=== PATIENT | female | born 1965 | race Caucasian/White ===

== ENCOUNTER → 2016-07-12 | Outpatient (CLI) | payer OTHER ==
[~2016-07-12] MED LIST: FEXO1TAB49 PO; LEVO75TA5 PO; LSN/2025 PO; METO1TAB69 PO; OMEG10007 PO; POTA10TA PO; SIMV20TA2 PO
[2016-07-12 19:17] LABS: BLOOD UREA NITROGEN 17 mg/dl (7-18); BUN/CREATININE RATIO 19.4 (10-20); CALCIUM 10.1 mg/dl (8.5-10.1); CARBON DIOXIDE 29 mmol/L (21-32); CHLORIDE 101 mmol/L (98-107); CREATININE 0.87 mg/dl (0.60-1.20); GLUCOSE 96 mg/dl (70-99); SODIUM 137 mmol/L (136-145)
== END | disposition home or self-care (01) ==
LOC: C.LABPVFM 13:40
PROVIDERS: ATTEND Nurse Practitioner
DX: I10 Essential (primary) hypertension (principal); E78.2 Mixed hyperlipidemia

== ENCOUNTER → 2016-11-07 | Outpatient (CLI) | payer OTHER ==
[~2016-11-07] MED LIST changes: +METO100T44 PO; -METO1TAB69 PO
--- NOTE | 2016-11-08 08:14 | MAMMOGRAPHY REPORT ---
BILATERAL DIGITAL SCREENING MAMMOGRAM TOMOSYNTHESIS WITH CAD: 11/07/2016 CLINICAL HISTORY: Routine screening. Patient has no complaints. TECHNIQUE: Breast tomosynthesis in addition to standard 2D mammography was performed. Current study was also evaluated with a Computer Aided Detection (CAD) system. COMPARISON: Comparison is made to exams dated: 11/14/2015 mammogram, 11/12/2014 mammogram, 12/01/2013 u ltrasound, 12/01/2013 mammogram, 11/11/2013 mammogram, and 11/10/2012 mammogram - [facility]. BREAST COMPOSITION: There are scattered areas of fibroglandular density in both breasts. FINDINGS: There is a 6 mm focal asymmetry in the lower outer posterior left breast, for which addit ional spot compression tomosynthesis views and targeted ultrasound are recommended. No other suspicious mass, architectural distortion or cluster of microcalcifications is seen bilater ally. IMPRESSION: ACR BI-RADS CATEGORY 0: INCOMPLETE EVALUATION: NEED ADDITIONAL IMAGING EVALUATION The 6 mm focal asymmetry in the lower outer left breast needs additional evaluation. The patient will be called to schedule an appointment. Approximately 10% of breast cancers are not detected with mammography. A negative mammographic repor t should not delay biopsy if a clinically suggestive mass is present. Ammy Rock M.D. ay/:11/07/2016 17:07:03 Digital Advertising Analyst: Shonda CORNELIUS(Christopher)(M), [facility] letter sent: Addl Imaging 0 BI-RADS Code: ACR BI-RADS Category 0: Incomplete Evaluation: Need Additional Imaging Evaluation
== END | disposition home or self-care (01) ==
LOC: C.MAMM 12:50
PROVIDERS: ATTEND Nurse Practitioner
DX: Z12.31 Encounter for screening mammogram for malignant neoplasm of breast (principal); N64.89 Other specified disorders of breast

== ENCOUNTER → 2016-11-15 | Outpatient (CLI) | payer OTHER ==
--- NOTE | 2016-11-15 13:06 | MAMMOGRAPHY REPORT ---
UNILATERAL LEFT DIGITAL DIAGNOSTIC MAMMOGRAM TOMOSYNTHESIS AND TARGETED LEFT ULTRASOUND: 11/15/2016 CLINICAL HISTORY: Callback from screening mammogram for left breast asymmetry. TECHNIQUE: Breast tomosynthesis in addition to standard 2D mammography was performed. Spot clement zaina left CC and MLO tomosynthesis images including C views were obtained. COMPARISON: Comparison is made to exams dated: 11/07/2016 mammogram, 11/14/2015 mammogram, 11/12/2014 mammogram, 12/01/2013 ultrasound, 12/01/2013 mammogram, and 11/11/2013 mammogram - [facility]. BREAST COMPOSITION: There are scattered areas of fibroglandular density in the left breast. FINDINGS: Spot compression views of the left breast demonstrate a persistent subtle low density roun d 6 mm mass seen on the cc tomosynthesis images only. The margins are not completely circumscribed. This is not evident on the MLO spot compression view although was shown to be located within the i nferior breast on the screening mammogram. Targeted ultrasound was performed of the left lower outer quadrant in the region of the mammographic mass. In the left breast at 4:00, 4 cm from the nipple, there is an oval circumscribed anechoic ma ss with a few thin internal septations, measuring 5 x 3 x 6 mm. This corresponds with the mammograp hic mass and is consistent with a benign cyst. IMPRESSION: ACR BI-RADS CATEGORY 2: BENIGN, TARGETED ULTRASOUND ACR BI-RADS CATEGORY 2: BENIGN Benign 6 mm cyst in the left breast at 4:00 on ultrasound, which corresponds with the low density ma mmographic mass. There is no mammographic or targeted sonographic evidence of malignancy. A 1 year screening mammogram is recommended. The patient has been verbally notified of the results. Approximately 10% of breast cancers are not detected with mammography. A negative mammographic repor t should not delay biopsy if a clinically suggestive mass is present. Eboni Bynum M.D. /:11/15/2016 10:22:14 Senior Digital Designer: Martita PATEL)(Cornelio), [facility] letter sent: Normal 1/2 BI-RADS Code: ACR BI-RADS Category 2: Benign Ultrasound BI-RADS: ACR BI-RADS Category 2: Benign
== END | disposition home or self-care (01) ==
LOC: C.MAMM 09:56
PROVIDERS: ATTEND Nurse Practitioner
DX: N64.9 Disorder of breast, unspecified (principal); N60.02 Solitary cyst of left breast

== ENCOUNTER → 2017-01-08 | Outpatient (CLI) | payer OTHER ==
[~2017-01-08] MED LIST changes: -METO100T44 PO; +METO1TAB69 PO
[2017-01-08 13:11] LABS: ALT/SGPT 27 U/L (12-78); AST/SGOT 23 U/L (15-37); BLOOD UREA NITROGEN 15 mg/dl (7-18); BUN/CREATININE RATIO 16.5 (10-20); CALCIUM 9.8 mg/dl (8.5-10.1); CARBON DIOXIDE 29 mmol/L (21-32); CHLORIDE 101 mmol/L (98-107); CREATININE 0.93 mg/dl (0.60-1.20); GLUCOSE 109 mg/dl (70-99); SODIUM 136 mmol/L (136-145)
[2017-01-08 13:13] LABS: ALKALINE PHOSPHATASE 63 U/L (45-117); CHOLESTEROL 187 mg/dl (0-200); CHOLESTEROL/HDL RATIO 4.3; HDL CHOLESTEROL 44 mg/dl; LDL CHOLESTEROL CALCULATED 109 mg/dl; TRIGLYCERIDES 169 mg/dl (0-150); VERY LOW DENSITY LIPOPROT CALC 34 mg/dl
== END | disposition home or self-care (01) ==
LOC: C.LABPVFM 09:55
PROVIDERS: ATTEND Nurse Practitioner
DX: I10 Essential (primary) hypertension (principal); E03.9 Hypothyroidism, unspecified; E87.6 Hypokalemia; E78.2 Mixed hyperlipidemia

== ENCOUNTER 2017-03-18 14:50 | Emergency (ER) | payer OTHER ==
[~2017-03-18] VITALS: Ht 154.9 cm; Wt 74.5 kg
[2017-03-18 14:57] VITALS: TEMP 37.2; O2SAT 95; Ht 154.9 cm; Wt 74.5 kg
--- NOTE | 2017-03-18 15:53 | DIAGNOSTIC IMAGING REPORT ---
CHEST ONE VIEW PORTABLE CLINICAL HISTORY: 51 years-old Female presenting with chest pain. TECHNIQUE: Portable upright AP view of the chest was obtained. COMPARISON: None. FINDINGS: Cardiomediastinal silhouette normal. Lungs and pleural spaces clear. Osseous structures normal. Upper abdomen normal. IMPRESSION: 1. No acute cardiopulmonary disease. Electronically signed by: Robi Griggs M.D. 03/18/2017 3:52 PM Dictated Date/Time: 03/18/2017 3:51 PM
[2017-03-18 16:08] LABS: BASO % 0.4 %; BASO ABS # 0.03 K/uL (0-0.2); COMPLETE YES; EOS % 1.3 %; IG% 0.1 %; LYMPH % 20.4 %; LYMPH ABS # 1.43 K/uL (1.2-3.4); MEAN CELL VOLUME 86.9 fL (80-100); MEAN CORPUSCULAR HEMOGLOBIN 28.9 pg (25-34); MEAN CORPUSCULAR HGB CONC 33.3 g/dl (32-36); MEAN PLATELET VOLUME 9.5 fL (7.4-10.4); MONO % 12.7 %; NEUT % 65.1 %; PLATELET COUNT 258 K/uL (130-400); RED BLOOD COUNT 4.95 M/uL (4.2-5.4)
--- NOTE | 2017-03-18 16:15 | EMERGENCY ROOM VISIT NOTE ---
History Report prepared by Coleman: Dequan Glez Under the Supervision of: Dr. Kassandra Nichols D.O. First contact with patient: 15:00 Chief Complaint: CHEST PAIN Stated Complaint: CHEST PAIN Nursing Triage Summary: Patient presents via ALS ambulance from home with c/o chest pain She lives with her brothers States mid to upper midsternal chest pain began at 0800 this morning The pain is not reproducible with palpation History of Present Illness The patient is a 51 year old female who presents to the Emergency Room with complaints of intermittent chest pain that started this morning. She rates her pain as an 8/10 in severity and states that the pain radiates to her throat, arms, and back. The patient describes her pain as heavy. She reports that the pain is worsened with coughing and deep breathing. The patient states that she woke up this morning with chest pains that would last for 30 minutes then resolve. She reports that throughout the day she started to experience her episodes intermittently. The patient states that she also developed a dry cough today, which worsens her chest pain. She states that she has also been experiencing numbness in her fingers, toes and left arm. The patient admits that she has been experiencing intermittent nausea and shortness of breath with the pain. The patient also reports experiencing intermittent tachycardia, back pain, and lightheadedness. She reports that she started to experience tingling welts on her neck when she started to comb her hair. The patient states that she was brought into the ED via EMS who gave her 325 mg of Aspiring and Nitroglycerin. She denies any relief of symptoms with these medications. The patient denies experiencing her chest pain here in the ED. The patient admits to a history of hypertension, which she takes Metoprolol and Lisinopril for, and hyperlipidemia. She admits that she takes Simvastatin, Thyroid medication, fish oil, and potassium. She denies a history of diabetes, GERD, surgery, and a family history of cardiac issues. The patient denies seeing a cardiac physician and having a stress test. The patient also denies any cold, fever, rash, change in severity with position or activity, vomiting, diaphoresis, and a previous experience of these symptoms. Source of History: patient Onset: this morning Position: chest Symptom Intensity: 8/10 Quality: other (heavy) Timing: intermittent Associated Symptoms: + cough, + SOB, + nausea, + back pain, + numbness, No fevers, No diaphoresis, No vomiting, No rash Review of Systems See HPI for pertinent positives & negatives. A total of 10 systems reviewed and were otherwise negative. Past Medical & Surgical Medical Problems: (1) Hyperlipidemia (2) Hypertension Family History FHx: diabetes mellitus FHx: hypertension Social History Smoking Status: Never Smoker Alcohol Use: none Drug Use: none Marital Status: single Housing Status: lives with family Occupation Status: unemployed Current/Historical Medications Scheduled Fexofenadine Hcl (Salima Allergy), 1 TAB PO QAM Fish Oil ([place]-3), 1 CAP PO BID Hctz/Lisinopril (Lisinopril/Hctz 20/25 Mg), 1 TAB PO QAM Levothyroxine Sodium (Levothyroxine Sodium), 1 TAB PO QAM Metoprolol Succ (Toprol Xl) (Toprol-Xl ), 100 MG PO QAM Potassium Chloride (K-Tabs), 1 TAB PO BID Simvastatin (Zocor), 20 MG PO QPM Allergies Coded Allergies: NO KNOWN DRUG ALLERGIES (Verified Allergy, Unknown, ., 03/18/17) Uncoded Allergies: NKDA (Allergy, Mild, 03/30/08) Physical Exam Vital Signs Date Time Temp Pulse Resp B/P (MAP) Pulse Ox O2 Delivery O2 Flow Rate FiO2 03/18/17 21:03 62 20 118/84 97 Room Air 03/18/17 20:36 67 20 116/81 96 Room Air 03/18/17 19:56 68 20 117/77 97 Room Air 03/18/17 19:28 61 03/18/17 18:59 63 20 110/73 96 Room Air 03/18/17 17:16 59 18 116/80 97 Room Air 03/18/17 16:36 60 20 104/74 98 Room Air 03/18/17 15:03 67 03/18/17 14:58 95 Room Air 03/18/17 14:57 95 Room Air 03/18/17 14:57 37.2 69 18 115/74 95 Room Air Physical Exam GENERAL: alert, well appearing, well nourished, no distress, non-toxic, flat affect EYE EXAM: normal conjunctiva, PERRL and EOM's grossly intact OROPHARYNX: no exudate, no erythema, lips, buccal mucosa, and tongue normal and mucous membranes are moist NECK: supple, no nuchal rigidity, no adenopathy, non-tender LUNGS: Clear to auscultation. Normal chest wall mechanics CHEST: Minimally reproducible chest pain, bilateral sternal borders, no crepitus or step offs. HEART: no murmurs, S1 normal and S2 normal ABDOMEN: abdomen soft, non-tender, normo-active bowel sounds, no masses, no rebound or guarding. BACK: Back is symmetrical on inspection and there is no deformity, no midline tenderness, no CVA tenderness. SKIN: no rashes and no bruising UPPER EXTREMITIES: upper extremities are grossly normal. LOWER EXTREMITIES: No pitting edema. NEURO EXAM: Normal sensorium, cranial nerves II-XII grossly intact, normal speech, no gross weakness of arms, no gross weakness of legs. Gross sensation intact. Medical Decision & Procedures ER Provider Diagnostic Interpretation: Radiology results have been interpreted by the radiologist and reviewed by me. CHEST ONE VIEW PORTABLE CLINICAL HISTORY: 51 years-old Female presenting with chest pain. TECHNIQUE: Portable upright AP view of the chest was obtained. COMPARISON: None. FINDINGS: Cardiomediastinal silhouette normal. Lungs and pleural spaces clear. Osseous structures normal. Upper abdomen normal. IMPRESSION: 1. No acute cardiopulmonary disease. Electronically signed by: Robi Griggs M.D. 03/18/2017 3:52 PM Dictated Date/Time: 03/18/2017 3:51 PM Laboratory Results 03/18/17 16:00 Red Blood Count 4.95, Mean Corpuscular Volume 86.9, Mean Corpuscular Hemoglobin 28.9, Mean Corpuscular Hemoglobin Concent 33.3, Mean Platelet Volume 9.5, Neutrophils (%) (Auto) 65.1, Lymphocytes (%) (Auto) 20.4, Monocytes (%) (Auto) 12.7, Eosinophils (%) (Auto) 1.3, Basophils (%) (Auto) 0.4, Neutrophils # (Auto ) 4.55, Lymphocytes # (Auto) 1.43, Monocytes # (Auto) 0.89, Eosinophils # (Auto ) 0.09, Basophils # (Auto) 0.03 03/18/17 16:00 Test 03/18/17 16:00 03/18/17 18:55 White Blood Count 7.00 K/uL (4.8-10.8) Red Blood Count 4.95 M/uL (4.2-5.4) Hemoglobin 14.3 g/dL (12.0-16.0) Hematocrit 43.0 % (37-47) Mean Corpuscular Volume 86.9 fL (80-100) Mean Corpuscular Hemoglobin 28.9 pg (25-34) Mean Corpuscular Hemoglobin Concent 33.3 g/dl (32-36) Platelet Count 258 K/uL (130-400) Mean Platelet Volume 9.5 fL (7.4-10.4) Neutrophils (%) (Auto) 65.1 % Lymphocytes (%) (Auto) 20.4 % Monocytes (%) (Auto) 12.7 % Eosinophils (%) (Auto) 1.3 % Basophils (%) (Auto) 0.4 % Neutrophils # (Auto) 4.55 K/uL (1.4-6.5) Lymphocytes # (Auto) 1.43 K/uL (1.2-3.4) Monocytes # (Auto) 0.89 K/uL (0.11-0.59) Eosinophils # (Auto) 0.09 K/uL (0-0.5) Basophils # (Auto) 0.03 K/uL (0-0.2) RDW Standard Deviation 41.6 fL (36.4-46.3) RDW Coefficient of Variation 13.0 % (11.5-14.5) Immature Granulocyte % (Auto) 0.1 % Immature Granulocyte # (Auto) 0.01 K/uL (0.00-0.02) Prothrombin Time 11.0 SECONDS (9.0-12.0) Prothromb Time International Ratio 1.0 (0.9-1.1) D-Dimer 210 ug/L FEU (0-500) Anion Gap 8.0 mmol/L (3-11) Est Creatinine Clear Calc Drug Dose 78.9 ml/min Estimated GFR () 102.9 Estimated GFR (Non- 88.8 BUN/Creatinine Ratio 10.5 (10-20) Calcium Level 9.1 mg/dl (8.5-10.1) Total Bilirubin 1.5 mg/dl (0.2-1) Aspartate Amino Transf (AST/SGOT) 19 U/L (15-37) Alanine Aminotransferase (ALT/SGPT) 21 U/L (12-78) Alkaline Phosphatase 46 U/L (45-117) Total Protein 7.6 gm/dl (6.4-8.2) Albumin 3.7 gm/dl (3.4-5.0) Globulin 3.9 gm/dl (2.5-4.0) Albumin/Globulin Ratio 0.9 (0.9-2) Thyroid Stimulating Hormone (TSH) 1.050 uIu/ml (0.300-4.500) Troponin I < 0.015 ng/ml (0-0.045) Laboratory results per my review. Medications Administered Medications (Trade) Dose Ordered Sig/Delvin Route Start Time Stop Time Status Last Admin Dose Admin Ketorolac Tromethamine (Toradol Inj) 30 mg NOW STAT IV 03/18/17 19:58 03/18/17 19:59 DC 03/18/17 20:14 30 MG Al Hydroxide/Mg Hydroxide (Maalox Susp) 30 ml NOW STAT PO 03/18/17 19:58 03/18/17 19:59 DC 03/18/17 20:14 30 ML ECG Indication: chest pain Rate (beats per minute): 65 Rhythm: normal sinus Findings: no acute ischemic change, left axis deviation, no ectopy, other ( normal intervals) ED Course 155: The patient was evaluated in room A11B. A complete history and physical exam was performed. 1714: I reevaluated and she is in no pain. I will order a repeat Troponin. 1954: I reevaluated the patient and she reports that she had one milder occurrence that was shorter than her other episodes. 1957: Ordered Maalox susp 30 ml PO, Toradol Injection 30 mg IV. 2040: Upon reevaluation, the patient is feeling better. I discussed the findings and the treatment plan with the patient. I discussed her follow up with her PCP and a possible cardiology evaluation. She verbalizes agreement and understanding. The patient was discharged home. Medical Decision Differential diagnoses includes but is not limited to acute coronary syndrome, myocardial infarction, pericarditis, pulmonary embolus, aortic dissection, pneumonia, pneumothorax, musculoskeletal, shingles, esophageal. Heart score 2 Patient with atypical presentation of chest pain, intermittent today, no exertional component no other exacerbating or alleviating factors. Patient does have history of reflux and did feel slightly improved following administration of Maalox here. Labs reassuring including 2 negative troponins. Doubt vascular etiology including dissection. Doubt occult infectious etiology. Imaging reassuring no evidence of pulmonary edema, pneumothorax, focal infiltrate. Vital signs here normal, no evidence of hypertensive urgency/ emergency. Doubt ACS. Discussed with patient close follow-up with family doctor and follow up with cardiology as a precaution given risk factors. Patient verbalized understanding of this was agreeable with plan. Discussed symptoms to watch and return for, she verbalized understanding. Patient well- appearing time of discharge, and related with a steady gait, tolerating by mouth at bedside, brother here to help take her home. Medication Reconcilliation Current Medication List: was personally reviewed by me Blood Pressure Screening Patient's blood pressure: Normal blood pressure Impression Primary Impression: Chest pain Scribe Attestation The scribe's documentation has been prepared under my direction and personally reviewed by me in its entirety. I confirm that the note above accurately reflects all work, treatment, procedures, and medical decision making performed by me. Departure Information Dispostion Home / Self-Care Referrals Lyudmila Valenzuela, C.R.N.P (PCP) Forms Call Back Authorization, HOME CARE DOCUMENTATION FORM, IMPORTANT VISIT INFORMATION Patient Instructions My [facility] Additional Instructions Please follow-up with your family doctor and discuss with them cardiology evaluation for additional testing. Please continue regular medications as prescribed. If you have any recurrent episodes of chest discomfort or pain, develop trouble breathing, dizziness, fevers, cough, vomiting, or you have any other new concerns, please return the emergency room. Problem Qualifiers Primary Impression: Chest pain Chest pain type: unspecified Qualified Codes: R07.9 - Chest pain, unspecified
[2017-03-18 16:29] LABS: ALT/SGPT 21 U/L (12-78); AST/SGOT 19 U/L (15-37); BLOOD UREA NITROGEN 8 mg/dl (7-18); BUN/CREATININE RATIO 10.5 (10-20); CALCIUM 9.1 mg/dl (8.5-10.1); CARBON DIOXIDE 27 mmol/L (21-32); CHLORIDE 98 mmol/L (98-107); CREATININE 0.77 mg/dl (0.60-1.20); GLUCOSE 102 mg/dl (70-99); POTASSIUM 3.2 mmol/L (3.5-5.1); SODIUM 133 mmol/L (136-145)
[2017-03-18 16:39] LABS: ALB/GLOB RATIO 0.9 (0.9-2); ALKALINE PHOSPHATASE 46 U/L (45-117)
[2017-03-18] MEDS ORDERED: ALUMINUM/MAGNESIUM SUSP 30 ML UDC PO STA (19:58)
[2017-03-18] MEDS ORDERED: KETOROLAC TROMETHAMINE 30 MG/ML VIAL IV STA (19:58)
[2017-03-18 21:03] VITALS: BP 118/84; PULSE 62; O2SAT 97
== END 2017-03-18 21:29 | disposition home or self-care (01) ==
LOC: C.EDA 14:50 → EDBD 14:50 → C.EDA 21:29
DX: R07.9 Chest pain, unspecified (principal); I10 Essential (primary) hypertension; E78.5 Hyperlipidemia, unspecified; Z79.899 Other long term (current) drug therapy; Z83.3 Family history of diabetes mellitus; Z82.49 Family history of ischemic heart disease and other diseases of the circulatory system

== ENCOUNTER → 2017-07-11 | Outpatient (CLI) | payer OTHER ==
[~2017-07-11] MED LIST changes: +METO100T44 PO; -METO1TAB69 PO
[2017-07-11 12:49] LABS: BLOOD UREA NITROGEN 10 mg/dl (7-18); CALCIUM 9.7 mg/dl (8.5-10.1); CARBON DIOXIDE 28 mmol/L (21-32); CREATININE 0.79 mg/dl (0.60-1.20); GLUCOSE 106 mg/dl (70-99); POTASSIUM 3.6 mmol/L (3.5-5.1); SODIUM 133 mmol/L (136-145)
== END | disposition home or self-care (01) ==
LOC: C.LABPVFM 09:44
PROVIDERS: ATTEND Nurse Practitioner
DX: I10 Essential (primary) hypertension (principal); E87.6 Hypokalemia